=== PATIENT | female | born 1940 | race Caucasian/White ===

== ENCOUNTER 2021-06-16 14:50 | Outpatient (CLI) | payer OTHER | END 2021-06-16 14:51 | disposition home or self-care (01) | LOC: RAD-FRANK 14:50 | PROVIDERS: ATTEND Nurse Practitioner Family | DX: M54.5 Low back pain (principal); M47.816 Spondylosis without myelopathy or radiculopathy, lumbar region; M41.9 Scoliosis, unspecified; M43.16 Spondylolisthesis, lumbar region | CPT/HCPCS: 72100 ==